=== PATIENT | female | born 1995 ===

== ENCOUNTER 2021-11-29 07:23 | Day surgery (SDC) | payer OTHER, SELFPAY ==
[~2021-11-29] VITALS: Ht 170.2 cm; Wt 82.6 kg
[2021-11-29] MEDS ORDERED: MIDAZOLAM 5 MG/5 ML VIAL ONE ×2 (08:36→08:51)
[2021-11-29] MEDS ORDERED: fentaNYL citrate 0.05 MG/ML VIAL ONE (08:59)
[2021-11-29] MEDS ORDERED: fentaNYL citrate 0.05 MG/ML VIAL IVP ONE (11:25)
[2021-11-29] MEDS ORDERED: MIDAZOLAM 2 MG/2 ML VIAL IVP ONE (11:25)
[2021-11-30] MEDS ORDERED: PROM25SU RC (20:06)
== END 2021-11-29 10:50 | disposition home or self-care (01) ==
LOC: MMU 07:23 → MDS 07:23 → MMU 07:43 → MDS 10:50
PROVIDERS: ATTEND Internal Medicine Gastroenterology
DX: R11.2 Nausea with vomiting, unspecified (principal); K20.90 Esophagitis, unspecified without bleeding; E03.9 Hypothyroidism, unspecified; Z98.84 Bariatric surgery status; Z79.899 Other long term (current) drug therapy; Z20.822 Contact with and (suspected) exposure to COVID-19
CPT/HCPCS: 36415; 43239; 43245; 86677; 87426; C1769; J2250; J3010

== ENCOUNTER 2021-11-30 18:30 | Emergency (ER) | payer OTHER, SELFPAY ==
[~2021-11-30] VITALS: Ht 170.2 cm; Wt 79.4 kg
[2021-11-30 19:42] VITALS: BP 118/64
--- NOTE | 2021-11-30 19:48 | NUR ---
TO LOBBY FOLLOWING TRIAGE
[2021-11-30] MEDS ORDERED: ONDANSETRON 4 MG/2 ML VIAL IM ONE (20:05)
[2021-11-30] MEDS ORDERED: PROM25SU RC (20:06)
[2021-11-30 20:21] VITALS: BP 118/64
--- NOTE | 2021-11-30 20:22 | NUR ---
Patient discharged with v/s stable. Written and verbal after care instructions given and explained. Patient verbalized understanding. Ambulatory with steady gait. All questions addressed prior to discharge. Advised to follow up with PMD.
== END 2021-11-30 20:22 | disposition home or self-care (01) ==
LOC: MED 18:30
DX: R11.0 Nausea (principal)
CPT/HCPCS: 96372; 99283; J2405

== ENCOUNTER 2023-05-29 11:34 | Day surgery (SDC) | payer OTHER ==
[~2023-05-29] VITALS: Ht 172.7 cm; Wt 66.7 kg
[~2023-05-29 11:34] MED LIST: PROM25SU RC
[2023-05-29] MEDS ORDERED: LIDOCAINE 2% 100 MG/5 ML UJET TP ONE (12:33)
[2023-05-29] MEDS ORDERED: fentaNYL citrate 0.05 MG/ML VIAL ONE (12:33)
[2023-05-29] MEDS ORDERED: KETOROLAC 30 MG/ML VIAL ONE (12:38)
[2023-05-29] MEDS ORDERED: MIDAZOLAM 2 MG/2 ML VIAL IVP ONE (13:15)
[2023-05-29] MEDS ORDERED: KETOROLAC 30 MG/ML VIAL IVP ONE (13:20)
== END 2023-05-29 13:16 | disposition home or self-care (01) ==
LOC: MOR 11:34 → MMU 11:40 → MOR 13:16
PROVIDERS: ATTEND Internal Medicine Gastroenterology
DX: K59.02 Outlet dysfunction constipation (principal); K21.9 Gastro-esophageal reflux disease without esophagitis; E03.9 Hypothyroidism, unspecified; Z79.899 Other long term (current) drug therapy
CPT/HCPCS: 45330; J1885; J3010; 45350